=== PATIENT | male | born 1990 | race Caucasian/White ===

== ENCOUNTER 2018-06-10 08:17 | Emergency (ER) | payer SELFPAY ==
[2018-06-10 08:23] VITALS: BP 136/72; PULSE 50; TEMP 98; BMI 30.5
--- NOTE | 2018-06-10 09:03 | PDOC ---
History of Present Illness - General Chief Complaint: Pain Stated Complaint: LEFT SIDE PAIN Time Seen by Provider: 06/10/18 09:02 History Source: Patient Exam Limitations: No Limitations - History of Present Illness Initial Comments: 06/10/18 09:22 28 year old male with no PMH presenting for left flank pain since yesterday. He describes his pain as sharp, radiating to his left groin, constant, currently 10 /10, no alleviating factors, no aggravating factors. Pt states that he took Aleve at 1200 this morning. He admits to diarrhea and dysuria. He denies nausea , vomiting, hematemesis, blood in stool, headache, chest pain, shortness of breath, fever. Allergies - NKDA Past History - Past Medical History Allergies/Adverse Reactions: Allergies Allergy/AdvReac Type Severity Reaction Status Date / Time No Known Allergies Allergy Verified 06/10/18 08:23 Home Medications: Ambulatory Orders Naproxen [Naprosyn -] 500 mg PO BID #14 tablet 06/10/18 COPD: No Other medical history: denies - Immunization History Immunization Up to Date: Yes - Suicide/Smoking/Psychosocial Hx Smoking History: Never smoked Have you smoked in the past 12 months: No Number of Cigarettes Smoked Daily: 1 Information on smoking cessation initiated: No Hx Alcohol Use: No Drug/Substance Use Hx: No Substance Use Type: None Review of Systems - Review of Systems Able to Perform ROS?: Yes Comments:: 06/10/18 09:24 General: denies fever, chills, night sweats, generalized weakness. HEENT: denies sore throat, rhinorrhea, ear pain. Heart: denies chest pain, palpitations, syncope, lower extremity swelling, diaphoresis. Respiratory: denies shortness of breath, cough, sputum production, hematemesis. Abdomen: admits to abdominal pain, diarrhea. denies nausea, vomiting, constipation, blood in stool. : admits to dysuria. denies hematuria, urinary incontinence. Back: admits to flank pain. denies back pain. Musculoskeletal: denies joint pain, muscle pain, joint swelling. Neurological: denies headache, dizziness, numbness, tingling, weakness. Skin: denies rash, laceration, abrasion. *Physical Exam - Vital Signs Last Vital Signs Temp Pulse Resp BP Pulse Ox 98.0 F 50 L 20 136/72 99 06/10/18 08:19 06/10/18 08:19 06/10/18 08:19 06/10/18 08:19 06/10/18 08:19 - Physical Exam Comments: 06/10/18 09:25 Appearance: comfortable. HEENT: head is normocephalic, atraumatic. EOMI. PERRLA. Neck: supple. Full ROM. Heart: regular rhythm. no murmurs, rubs or gallops. No pericardial friction rub. Lungs: clear to auscultation bilaterally. no crackles, rhonchi or wheezing. no stridor. Abdomen: soft, nontender. normal bowel sounds. no rebound, guarding, masses. No CVA tenderness bilaterally. Extremities: Peripheral pulses intact and equal. No lower extremity edema. Neurological: Alert. Oriented x3. CN 2-12 grossly intact. Moves all four extremities. ED Treatment Course - LABORATORY CBC & Chemistry Diagram: 06/10/18 09:40 06/10/18 09:40 Medical Decision Making - Medical Decision Making 06/10/18 10:10 28 year old male with no PMH presenting to ED for left flank pain radiating to groin associated with diarrhea, LLQ pain and dysuria. Initial Vital Signs Temp Pulse Resp BP Pulse Ox 98.0 F 50 L 20 136/72 99 06/10/18 08:19 06/10/18 08:19 06/10/18 08:19 06/10/18 08:19 06/10/18 08:19 Afebrile. Bradycardia at 50. No hypotension. No hypoxia. Pending labs, CT spiral. No leukocytosis, no anemia. No electrolyte abnormalities, no kidney dysfunction. Normal lipase. Pending coags and CT. 06/10/18 10:22 Coags normal. 06/10/18 10:32 Pt reassessed, states his pain has improved and he is feeling better. 06/10/18 11:29 CT reveals non-obstructing kidney stone. Pt will be discharged with urology referral, instructions to follow up with pcp and urology, prescription for naproxen and strict return precautions. I spoke with the patient about the plan for his care, which he agrees with. *DC/Admit/Observation/Transfer Diagnosis at time of Disposition: Flank pain - Discharge Dispostion Disposition: HOME Condition at time of disposition: Improved Decision to Admit order: No - Prescriptions Prescriptions: Naproxen [Naprosyn -] 500 mg PO BID #14 tablet - Referrals Referrals: Iker French [Primary Care Provider] - Ranulfo Dyer MD [Staff Physician] - - Patient Instructions Printed Discharge Instructions: DI for Kidney Stones Additional Instructions: You were seen today for flank pain. Your labwork was normal. A copy of the results are included in your discharge paperwork. Your CT of your abdomen and pelvis revealed a kidney stone. A copy of the report is included in your discharge paperwork. Your urine analysis revealed a small amount of blood, which is to be expected with a kidney stone. A copy of the results are included in your discharge paperwork. You were given intramuscular Toradol - an anti-inflammatory medication. I have prescribed you a prescription for Naproxen - an anti-inflammatory medication - and sent it to your prescription. party supply specialist the prescription today and take as advised. Please follow up with a urologist within 7 days. I have provided a referral for Dr. Lew, please call his office today and schedule an appointment. Bring the paperwork given to you today with you. Your workup is not complete until you follow up. Please follow up with your primary care doctor within 7 days. Please call the office today and schedule an appointment. Bring the paperwork given to you today with you. Your workup is not complete until you follow up. Return to the Emergency Department for increasing pain, nausea, vomiting, lightheadedness, chest pain, shortness of breath, red urine, fever or any other new, worsening or concerning symptoms. - Post Discharge Activity Forms/Work/School Notes: Back to Work
[2018-06-10] MEDS ORDERED: ACETAMINOPHEN 1000 MG/100 ML VIAL (NON FORMULARY) IVPB ONE (09:19)
[2018-06-10] MEDS ORDERED: ACETAMINOPHEN INJECTION 100 ML IVPB ONE (09:23)
[2018-06-10] MEDS ORDERED: KETOROLAC TROMETHAMINE 30 MG/1 ML VIAL IVPUSH ONE (09:30)
[2018-06-10] MEDS ORDERED: KETOROLAC TROMETHAMINE 30 MG/1 ML VIAL ONE (09:33)
[2018-06-10 09:51] LABS: BASO % 0.5 % (0-2.0); EOS % 3.6 % (0-4.5); HEMATOCRIT 43.5 % (35.4-49); HEMOGLOBIN 14.8 GM/dL (11.7-16.9); LYMPH % 22.3 % (8-40); MCHC 33.9 g/dl (32.0-35.9); MEAN CELL VOLUME 88.4 fl (80-96); MEAN PLT VOLUME 9.1 fl (7.5-11.1); MONO % 6.8 % (3.8-10.2); NEUT % 66.8 % (42.8-82.8); PLATELET COUNT 272 K/MM3 (134-434); RBC 4.92 M/mm3 (4.00-5.60); RDW 13.2 % (11.9-15.9); WHITE BLOOD COUNT 9.3 K/mm3 (4.0-10.0)
[2018-06-10 10:03] LABS: INR 0.96 (0.83-1.09); PROTHROMBIN TIME (PATIENT) 10.9 SEC (9.7-13.0)
[2018-06-10 10:05] LABS: ALBUMIN 4.5 g/dl (3.4-5.0); ANION GAP 10 (8-16); BLOOD UREA NITROGEN 15 mg/dL (7-18); CALCIUM 9.5 mg/dL (8.5-10.1); CHLORIDE 107 mmol/L (98-107); CO2 26 mmol/L (21-32); CREATININE 1.1 mg/dL (0.7-1.3); GLUCOSE,RANDOM 93 mg/dL (74-106); LIPASE 132 U/L (73-393); POTASSIUM 4.3 mmol/L (3.5-5.1); SGOT/AST 16 U/L (15-37); SGPT/ALT 39 U/L (12-78); SODIUM 143 mmol/L (136-145)
[2018-06-10 10:06] LABS: ACTIVATED PTT 28.4 SECONDS (25.2-36.5)
[2018-06-10 10:08] LABS: ALK PHOS 60 U/L (45-117); BILIRUBIN,TOTAL 0.4 mg/dL (0.2-1.0); TOT PROT 7.4 g/dl (6.4-8.2)
[2018-06-10 10:43] LABS: URINE APPEARANCE CLEAR; URINE BILIRUBIN NEGATIVE (<2.0 mg/dL); URINE COLOR YELLOW; URINE GLUCOSE (UA) NEGATIVE (NEGATIVE); URINE KETONE NEGATIVE (NEGATIVE); URINE LEUK ESTERASE NEGATIVE (NEGATIVE); URINE NITRITE NEGATIVE (NEGATIVE); URINE PROTEIN NEGATIVE (NEGATIVE); URINE UROBILINOGEN NEGATIVE mg/dL (0.2-1.0)
[2018-06-10 10:56] LABS: URINE MUCUS MANY
--- NOTE | 2018-06-10 11:23 | PDOC ---
Attending Attestation - Resident Resident Name: Jammie Salazar - ED Attending Attestation I have performed the following: I have examined & evaluated the patient, The case was reviewed & discussed with the resident, I agree w/resident's findings & plan, Exceptions are as noted - HPI HPI: 06/10/18 11:21 28 M with no PMH presents to ED with L flank pain radiating to groin. Denies F/ C. Endorses some dysuria. No h/o kidney stone but reports father has had kidney stones. Denies abdominal pain. Denies N/V/D. - Physicial Exam PE: 06/10/18 11:22 "GENERAL: Awake, alert, and fully oriented, in no acute distress. HEAD: No signs of trauma EYES: PERRLA, EOMI, sclera anicteric, conjunctiva clear ENT: Auricles normal inspection, hearing grossly normal, nares patent, oropharynx clear without exudates. Moist mucosa NECK: Nontender, no stepoffs, Normal ROM, supple, no lymphadenopathy, JVD, or masses LUNGS: Breath sounds equal, clear to auscultation bilaterally. No wheezes, and no crackles HEART: Regular rate and rhythm, normal S1 and S2, no murmurs, rubs or gallops ABDOMEN: Soft, nontender, normoactive bowel sounds. No guarding, no rebound. No masses, no CVAT EXTREMITIES: Normal range of motion, no edema. No clubbing or cyanosis. No cords, erythema, or tenderness NEUROLOGICAL: Cranial nerves II through XII intact. 5/5 strength and sensation in all extremities, Normal speech, normal gait, normal cerebellar function SKIN: Warm, Dry, normal turgor, no rashes or lesions noted." - Medical Decision Making 06/10/18 11:22 28 M with L flank pain radiating to groin. Suspicious for renal colic. - Labs, UA - SPiral CT - IVF, toradol 06/10/18 11:24 UA with + RBCs, labs otherwise unremarkable. CT shows 1.3 mm stone at UVJ Pt reassessed - pain is well controlled. Will DC with urology f/u Pt is well appearing, with normal vitals. Clinically stable for DC at this time. I discussed the physical exam findings, ancillary test results and final diagnoses with the patient. I answered all of the patient's questions. The patient was satisfied with the care received and felt comfortable with the discharge plan and treatment plan. The patient agrees to follow up with the primary care physician within 24-72 hours.
== END 2018-06-10 11:46 | disposition home or self-care (01) ==
LOC: JER 08:17
PROC: 3E0333Z Introduction of Anti-inflammatory into Peripheral Vein, Percutaneous Approach (ICD-10-PCS; principal; 2018-06-10)
DX: R10.30 Lower abdominal pain, unspecified (principal)
CPT/HCPCS: 36415; 74176; 80053; 81003; 81015; 83690; 85025; 85610; 85730; 99282-25